=== PATIENT | male | born 1965 | race Caucasian/White ===

== ENCOUNTER 2016-09-22 16:24 | Emergency (ER) | payer OTHER ==
[2016-09-22] MEDS ORDERED: DIPHENHYDRAMINE HCL 50 MG/ML VIAL IV ONE (16:52)
[2016-09-22] MEDS ORDERED: METHYLPREDNISOLONE INJ 125 MG/2 ML SDV IV ONE ×2 (16:52→17:01)
[2016-09-22] MEDS ORDERED: EPINEPHRINE INJ/PF 1 MG/1 ML AMPULE IM ONE (16:52)
[2016-09-22] MEDS ORDERED: NORMAL SALINE 1000 ML 1,000 ML IV ONE (16:52)
[2016-09-22] MEDS ORDERED: FAMOTIDINE INJ/PF 20 MG/2 ML SDV IV ONE ×2 (16:52→16:54)
--- NOTE | 2016-09-22 16:52 | ER Document Report ---
ED Medical Screen (RME) - General Information source: Patient TRAVEL OUTSIDE OF THE [place] IN LAST 30 DAYS: No - General Chief Complaint: Bee Sting Stated Complaint: POSSIBLE INSECT BITE,DIFFICULTY BREATHING Time Seen by Provider: 09/22/16 16:47 Notes: Pt is a 50 year old male that presents today secondary to a wasp sting while at work. Pt states in the 1979' he was given an epipen for wasp stings. Pt states after being stung he had a heart racing sensation and bilateral hand tingling. Pt denies any shortness of breath. (AYDEE JENKINS) Past Medical History Renal/ Medical History: Denies: Hx Peritoneal Dialysis Review of Systems - Review of Systems Cardiovascular: See HPI, Heart racing Skin: See HPI, Other - Stung by wasp Neurological/Psychological: See HPI, Other - hands tingling Physical Exam - Vital signs Interpretation: Hypotensive, Tachycardic - Skin Skin Color: Other - Insect envenomation to left neck, diffuse urticaria across abdomen Course - Re-evaluation Re-evalutation: 09/22/16 Patient is tachycardic and hypotensive. Patient feels lightheaded. Recent sting. Concern for anaphylactic reaction. Patient upgraded to yellow and bed in the main ED was called for. Patient was pushed in a wheelchair by myself to bed 4 and care was handed to Dr. Berry. 09/22/16 19:11 I personally performed the services described in the documentation, reviewed and edited the documentation which was dictated to the scribe in my presence, and it accurately records my words and actions. (BHARGAV CUELLAR) - Vital Signs Vital signs: Temp Pulse Resp BP Pulse Ox 125 H 17 120/80 98 09/22/16 16:37 09/22/16 18:51 09/22/16 18:51 09/22/16 18:51 Scribe Documentation - Scribe Written by Benjamin:: Benjamin Norris, 09/22/2016 2381 acting as scribe for :: Parvez
[2016-09-22] MEDS ORDERED: EPINEPHRINE INJ/PF 1 MG/1 ML AMPULE ONE (16:53)
[2016-09-22] MEDS ORDERED: METHYLPREDNISOLONE INJ 40 MG/1 ML SDV ONE (16:53)
[2016-09-22] MEDS ORDERED: NORMAL SALINE 1000 ML 1,000 ML IV PRN (17:02)
[2016-09-22] MEDS ORDERED: MAGNESIUM SULFATE/D5W 100 ML IV ONE (17:02)
[2016-09-22 19:47] VITALS: BP 129/88
--- NOTE | 2016-09-22 19:53 | ER Document Report ---
ED General - General Chief Complaint: Bee Sting Stated Complaint: POSSIBLE INSECT BITE,DIFFICULTY BREATHING Time Seen by Provider: 09/22/16 16:47 Mode of Arrival: Ambulatory Information source: Patient Notes: 50-year-old man with diabetes and a history of allergies to these presents to the emergency room with rash, dizziness after a bee sting. The bee sting was to the left neck. He states that it occurred at about 3:15. He states shortly thereafter he started getting a diffuse rash and had throat tightness and was feeling dizzy. Patient was noted to be hypotensive in triage. TRAVEL OUTSIDE OF THE [place] IN LAST 30 DAYS: No - HPI Onset: Just prior to arrival Onset/Duration: Sudden Quality of pain: No pain Severity: None Pain Level: Denies Associated symptoms: denies: Chest pain, Fever, Shortness of breath Exacerbated by: Denies Relieved by: Denies Similar symptoms previously: Yes Recently seen / treated by doctor: No - Related Data Allergies/Adverse Reactions: bee venom protein (honey bee) Adverse Reaction (Verified 09/22/16 17:22) Past Medical History - General Information source: Patient - Social History Smoking Status: Current Every Day Smoker Cigarette use (# per day): Yes - half pack per day Chew tobacco use (# tins/day): No Frequency of alcohol use: None Drug Abuse: None Lives with: Family Family History: None Patient has suicidal ideation: No Patient has homicidal ideation: No - Past Medical History Cardiac Medical History: Reports: Hx Hypercholesterolemia Pulmonary Medical History: Reports: None EENT Medical History: Reports: None Neurological Medical History: Reports: None Endocrine Medical History: Reports: Hx Diabetes Mellitus Type 1 Renal/ Medical History: Denies: Hx Peritoneal Dialysis Malignancy Medical History: Reports None GI Medical History: Reports: Hx Hiatal Hernia Musculoskeltal Medical History: Reports None Skin Medical History: Reports None Psychiatric Medical History: Reports: None Traumatic Medical History: Reports: None Infectious Medical History: Reports: None Surgical Hx: Other - Noncontributory Review of Systems - Review of Systems Constitutional: denies: Chills, Fever EENT: See HPI Cardiovascular: See HPI Respiratory: No symptoms reported Gastrointestinal: No symptoms reported Genitourinary: No symptoms reported Male Genitourinary: No symptoms reported Musculoskeletal: No symptoms reported Skin: No symptoms reported Hematologic/Lymphatic: No symptoms reported Neurological/Psychological: No symptoms reported Physical Exam - Vital signs Vitals: Pulse Resp BP Pulse Ox 125 H 20 86/55 L 92 09/22/16 16:37 09/22/16 16:37 09/22/16 16:37 09/22/16 16:37 Notes: Physical exam: GENERAL: 50-year-old man, alert and oriented 3, hypotensive in triage. Denies any shortness of breath. HEAD: Atraumatic, normocephalic. EYES: Pupils equal round and reactive to light, extraocular movements intact, sclera anicteric, conjunctiva are normal. ENT: TMs normal, nares patent, oropharynx clear without exudates. There is no swelling of the posterior pharynx are at the bottom of the tongue. Moist mucous membranes. NECK: Normal range of motion, supple without lymphadenopathy, there is no swelling of the submandibular or submental space. There is no swelling to the neck. There is no stridor. LUNGS: Breath sounds clear to auscultation bilaterally and equal. No wheezes rales or rhonchi. HEART: Regular rate and rhythm without murmurs, rubs or gallops. ABDOMEN: Soft, normoactive bowel sounds. No tenderness to palpation. No guarding, no rebound. No masses appreciated. EXTREMITIES: Normal range of motion, no pitting or edema. No clubbing or cyanosis. NEUROLOGICAL: Cranial nerves II through XII grossly intact. Normal speech, normal gait. PSYCH: Normal mood, normal affect. SKIN: Warm, Dry, normal turgor, no rashes or lesions noted. Course - Re-evaluation Re-evalutation: 09/23/16 00:48 Patient treated with IM epinephrine, IV Benadryl, IV Solu-Medrol, IV Pepcid and IV magnesium. Patient watched for several hours. His symptoms have resolved completely and he was adamant about leaving. - Vital Signs Vital signs: Temp Pulse Resp BP Pulse Ox 125 H 20 129/88 H 98 09/22/16 16:37 09/22/16 19:31 09/22/16 19:31 09/22/16 19:31 - Laboratory Laboratory results interpreted by me: 09/22/16 19:08 POC Glucose 230 H Critical Care Note - Critical Care Note Total time excluding time spent on procedures (mins): 60 Discharge - Discharge Clinical Impression: acute allergic reaction Condition: Stable Disposition: HOME, SELF-CARE Instructions: Acute Allergic Reaction ([facility]) Additional Instructions: Recommendations: Take medicines as prescribed. Take epinephrine autoinjector for any shortness of breath or feelings like her airway is getting closed off work the ability to pass out. He to use the autoinjector, return to the ER at once. Followup with an medicinal plant picker for allergy testing: [facility]: Address: [address] [place] [address], [place] [address] Take the Benadryl and Pepcid as prescribed. Take the prednisone for the next 3 days: Start in the morning. Follow-up with your primary care doctor. Return to the emergency room for any swelling, shortness of breath any concerns he getting worse. Prescriptions: Diphenhydramine HCl [Benadryl] 50 mg PO Q6HP PRN #14 capsule PRN Reason: Epinephrine [Epipen 2-Shreyas] 0.3 mg IM ONCE PRN #2 ml PRN Reason: Famotidine [Pepcid 20 mg Tablet] 20 mg PO DAILY #12 tablet Prednisone [Deltasone 20 mg Tablet] 3 tab PO DAILY 3 Days Forms: Return to Work
== END 2016-09-22 20:15 | disposition home or self-care (01) ==
LOC: ER 16:24
DX: T63.441A Toxic effect of venom of bees, accidental (unintentional), initial encounter (principal); R21 Rash and other nonspecific skin eruption; R42 Dizziness and giddiness; R09.89 Other specified symptoms and signs involving the circulatory and respiratory systems; Y92.9 Unspecified place or not applicable; Z91.030 Bee allergy status; F17.210 Nicotine dependence, cigarettes, uncomplicated; E78.00 Pure hypercholesterolemia, unspecified; E10.9 Type 1 diabetes mellitus without complications
CPT/HCPCS: 99284; 96372; 96361; 96375; 96365; 82962; J1200; J0171; J2920; J2930; J3475; J7030; S0028